=== PATIENT | male | born 1965 | race Caucasian/White ===

== ENCOUNTER → 2020-09-25 07:37 | Outpatient (CLI) | payer OTHER, SELFPAY ==
--- NOTE | ~2020-09-25 | MR_ITS ---
EXAMINATION: MR lumbar spine wo con DATE: 09/25/2020 08:14 INDICATION: Acute right-sided low back pain with right-sided sciatica. TECHNIQUE: Magnetic resonance imaging (MRI) of the lumbar spine was performed without intravenous con trast. Sequences included sagittal T2-weighted FSE, sagittal T2-weighted FS FSE, sagittal T1-weighted FSE, and axial T2-weighted FSE. COMPARISON: None FINDINGS: There is 5 degrees levocurvature of lumbar spine. There is 3 mm retrolisthesis of L2 on L3, L3 on L4, and L4-L5. There is mildly decreased disc height at L2-L3 and L3-L4, moderately decreased disc height at L4-L5, and mildly decreased disc at L5-S1 with endplate remodeling. The distal spinal cord signal intensity is normal. The conus medullaris is at L1. The following disc levels are specifi richard discussed: L1-L2: The disc does not extend beyond the endplate margin. There is no facet joint osteoarthritis. T here is no neural foraminal stenosis. There is no central canal stenosis. L2-L3: The disc is bulging and has an annular fissure. There is mild bilateral facet joint osteoarthr itis. There is mild bilateral neural foraminal stenosis. There is mild central canal stenosis. L3-L4: The disc is bulging and has an annular fissure. There is mild bilateral facet joint osteoarthr itis. There is mild bilateral neural foraminal stenosis. There is mild central canal stenosis. L4-L5: The disc is bulging and has an annular fissure. There is moderate bilateral facet joint osteoa rthritis. There is moderate bilateral neural foraminal stenosis. There is mild central canal stenosis . L5-S1: The disc is bulging and has an annular fissure. There is severe bilateral facet joint osteoart hritis. There is mild right and moderate left neural foraminal stenosis. There is mild central canal stenosis. IMPRESSION: 1. Moderate lumbar spondylosis. Reviewed, dictated and finalized at location A. TER MAINTAINER
== END ==
PROVIDERS: PCP Student in an Organized Health Care Education/Training Program; Visit Provider Student in an Organized Health Care Education/Training Program
DX: M48.07 Spinal stenosis, lumbosacral region (principal); M47.817 Spondylosis without myelopathy or radiculopathy, lumbosacral region
CPT/HCPCS: 72148

== ENCOUNTER 2023-03-16 01:51 | Day surgery (SDC) | payer OTHER, SELFPAY ==
[2023-03-06 15:16] VITALS: BMI 23.4
--- NOTE | 2023-03-14 15:29 | P.HP_ITS ---
History of Present Illness History of Present Illness Consent: Risks, benefits, and alternatives have been discussed and questions answered. Patient agrees to proceed with procedure. Chief complaint: other diseases of digestive system,hx colon polyps Narrative: Ferdinand Yeung is a 58 year old male referred for colon cancer screening. About 5 years ago he had removal of polyps 1 of which contained high-grade dysplasia. He also suffers from chronic acid reflux which he takes a PPI several times a week. Review of Systems Review of Systems: All systems reviewed & are unremarkable except as noted in HPI and below PMFSH Surgical History Surgical History History of hernia surgery right inguinal - 2016 History of shoulder surgery left shoulder - 1982 History of spinal surgery 01/2020 Family History Family History Mother Hypertension Family history of mental disorder Patient's mother is in good health Family history of elevated blood lipids Father Family history of diabetes mellitus in first degree relative Diabetes mellitus Hypertension Patient's father is in good health Family history of coronary artery disease Social History Social History Smoking status: Never smoker Alcohol intake: current Alcohol use details: ON OCCASION Substance use: never Substance use type: does not use Living arrangements: with family Spiritual care concerns: No Meds Home Medications and Allergies Home Medications Medication Instructions Recorded Confirmed Type lisinopril 10 mg tablet 10 mg PO DAILY 08/16/20 03/06/23 History rosuvastatin [Crestor] 20 mg PO DAILY 08/16/20 03/06/23 History [place] 3 1 tab-cap PO DAILY 03/06/23 03/06/23 History bupropion HCl 150 mg 24 hr tablet, 150 mg PO DAILY 03/06/23 03/06/23 History extended release magnesium oxide 1 tab-cap PO DAILY 03/06/23 03/06/23 History multivitamin 1 tab-cap PO DAILY 03/06/23 03/06/23 History Allergies Allergy/AdvReac Type Severity Reaction Status Date / Time No Known Allergies Allergy Verified 03/16/23 08:13 Exam Const: General: alert Orientation/consciousness: patient oriented x3 Resp: Auscultation: clear to auscultation bilaterally Cardio: Rhythm: regular rhythm GI: GI Palp: Yes Soft to palpation and No Tenderness to palpation present (GI) Neuro: General: patient oriented x3 Assessment and Plan Assessment and plan (1) Colon cancer screening: Code(s): Z12.11 - Encounter for screening for malignant neoplasm of colon Status: Acute (2) GERD (gastroesophageal reflux disease): Code(s): K21.9 - Gastro-esophageal reflux disease without esophagitis Status: Acute Assessment and Plan: EGD with possible biopsy or dilatation or cautery.
[2023-03-16 08:14] VITALS: BP 120/78; PULSE 69; RESP 20; TEMP 36.3; O2SAT 100
[2023-03-16] MEDS: LACTATED RINGERS 1,000 ML 150 ML IV CONT (08:25)
--- NOTE | 2023-03-16 08:50 | WPDANESEPPF ---
Anes - Initial Pre Proc Eval Procedure: Operation Date: 03/16/23 09:30 Proposed Procedures p Esophagogastroduodenoscopy & Colonoscopy - Neri Winters MD Date/Time: 03/16/23 08:50 Surgeon: Neri Winters MD Pre Op Diagnosis: other diseases of digestive system,hx colon polyps Patient Data Age: 58 Gender: M Height: 1.73 m Weight: 68.8 kg Last Vital Signs Temp 97.3 F L 03/16/23 08:14 Pulse 69 03/16/23 08:14 Resp 20 03/16/23 08:14 BP 120/78 03/16/23 08:14 Pulse Ox 100 03/16/23 08:14 O2 Del Method Room Air 03/16/23 08:14 Allergies Allergy/AdvReac Type Severity Reaction Status Date / Time No Known Allergies Allergy Verified 03/16/23 08:13 Home Medications Medication Instructions Recorded Confirmed Type lisinopril 10 mg tablet 10 mg PO DAILY 08/16/20 03/06/23 History rosuvastatin [Crestor] 20 mg PO DAILY 08/16/20 03/06/23 History [place] 3 1 tab-cap PO DAILY 03/06/23 03/06/23 History bupropion HCl 150 mg 24 hr tablet, 150 mg PO DAILY 03/06/23 03/06/23 History extended release magnesium oxide 1 tab-cap PO DAILY 03/06/23 03/06/23 History multivitamin 1 tab-cap PO DAILY 03/06/23 03/06/23 History Patient hx anesthesia problems: none Family hx anesthesia problems: none Results Review: All pre-operative results and documents have been reviewed as part of the pre-operative evaluation. FOR[facility], [facility] Surgical History Surgical History (Updated 08/16/20 @ 16:23 by Hodan Allan RN) History of hernia surgery right inguinal - 2016 History of shoulder surgery left shoulder - 1982 History of spinal surgery 01/2020 Family History Family History (Updated 02/28/17 @ 07:30 by DOCTOR UNKNOWN) Mother Hypertension Family history of mental disorder Patient's mother is in good health Family history of elevated blood lipids Father Family history of diabetes mellitus in first degree relative Diabetes mellitus Hypertension Patient's father is in good health Family history of coronary artery disease Social History Social History (Updated 08/16/20 @ 16:23 by Hodan Allan RN) Smoking status: Never smoker Alcohol intake: current Alcohol use details: ON OCCASION Substance use: never Substance use type: does not use Living arrangements: with family Spiritual care concerns: No Anes - Eval Final PreProcedure Day of Procedure 03/16/23 08:50 Patient weight: normal Heart: regular rate and rhythm Lungs: clear to auscultation Airway: Mallampati scale class II Neurological: alert and oriented Last oral intake: >/= 8 hours ASA classification: II Emergent: no Anesthetic plan: proceed Anesthesia type and monitoring: general GIVS and standard monitoring Results Review: All pre-operative results and documents have been reviewed as part of the pre-operative evaluation. Informed Consent: The patient's anesthetic plan and its attendant risks and benefits were discussed with the patient/family/POA. Questions were solicited and answers provided to the satisfaction of the patient/family/POA.
--- NOTE | 2023-03-16 09:36 | SUR.OPER ---
EGD ended 929 colonoscopy started 935
[2023-03-16 09:48] VITALS: BP 103/69; PULSE 78; RESP 20; O2SAT 98
[2023-03-16 09:58] VITALS: BP 106/74; PULSE 84; RESP 19; O2SAT 98
[2023-03-16 10:08] VITALS: BP 110/73; PULSE 74; RESP 20; O2SAT 94
== END 2023-03-16 10:17 | disposition home or self-care (01) ==
PROVIDERS: PCP Physician Assistant; Visit Provider Internal Medicine Gastroenterology
PROC: 0DJ08ZZ Inspection of Upper Intestinal Tract, Via Natural or Artificial Opening Endoscopic (ICD-10-PCS; CPT 43235; principal; 2023-03-16 09:30)
DX: Z12.11 Encounter for screening for malignant neoplasm of colon (principal); K57.30 Diverticulosis of large intestine without perforation or abscess without bleeding; K21.00 Gastro-esophageal reflux disease with esophagitis, without bleeding; K44.9 Diaphragmatic hernia without obstruction or gangrene; K64.8 Other hemorrhoids
CPT/HCPCS: 45378; 43239; 87081; 88305; J2001; J2704; J7120

== ENCOUNTER → 2023-09-06 15:16 | Outpatient (CLI) | payer OTHER, SELFPAY ==
--- NOTE | ~2023-09-06 | MR_ITS ---
EXAMINATION: MR lumbar spine wo con DATE: 09/06/2023 15:58 INDICATION: Low back pain. Right leg numbness and tingling. TECHNIQUE: Magnetic resonance imaging (MRI) of the lumbar spine was performed without intravenous con trast. Sequences included sagittal T2-weighted FSE, sagittal T2-weighted FS FSE, sagittal T1-weighted FSE, and axial T2-weighted FSE. COMPARISON: Lumbar spine MRI 09/25/2020 FINDINGS: There is 6 degrees levocurvature of lumbar spine. There is mild chronic anterior wedging of L2 vertebral body. There is moderately decreased disc height at L2-L3 and L3-L4, severely decreased disc height at L4-L5, and moderately decreased disc height at L5-S1. The distal spinal cord signal in tensity is normal. The conus medullaris is at L1. The following disc levels are specifically discusse d: L1-L2: The disc does not extend beyond the endplate margin. There is mild bilateral facet joint osteo arthritis. There is no neural foraminal stenosis. There is no central canal stenosis. L2-L3: The disc is bulging. There is mild right and moderate left facet joint osteoarthritis. There i s mild bilateral neural foraminal stenosis. There is mild central canal stenosis. L3-L4: The disc is bulging. There is mild bilateral facet joint osteoarthritis. There is mild bilater al neural foraminal stenosis. There is mild central canal stenosis. L4-L5: The disc is bulging and has an annular fissure. There is moderate bilateral facet joint osteoa rthritis. There is moderate bilateral neural foraminal stenosis. There is mild central canal stenosis . L5-S1: This is bulging and has an annular fissure. There is severe bilateral facet joint osteoarthrit is. There is mild right and moderate left neural foraminal stenosis. There is mild central canal sten osis. IMPRESSION: 1. Severe lumbar spondylosis, mildly worsened from 09/25/2020. Reviewed, dictated and finalized at location E. ORMANCE INSTRUCTOR
== END ==
PROVIDERS: PCP Physician Assistant
DX: R29.898 Other symptoms and signs involving the musculoskeletal system (principal); M43.06 Spondylolysis, lumbar region
CPT/HCPCS: 72148

== ENCOUNTER 2025-03-27 09:12 | Outpatient (CLI) | payer OTHER, SELFPAY ==
--- NOTE | ~2025-03-27 | MR_ITS ---
MRI of the lumbar spine Clinical History: Radiculopathy Technique: Axial T2-weighted images, and sagittal T1-weighted, T2-weighted, and T2 fat-sat images wer e acquired. COMPARISON: 09/06/2023 Findings: No acute fracture or subluxation identified. Osseous alignment is unchanged. No suspicious bone marrow signal abnormality seen. At L1-L2, there is no disc bulge or herniation. No spinal canal stenosis or neural foraminal narrowin g. At L2-L3, there is moderate degenerative disc narrowing. There is minimal disc bulge. No spinal canal stenosis or left neural foraminal narrowing. There is mild right neural foraminal narrowing. At L3-L4, there is moderate degenerative disc narrowing. There is mild disc bulge. No spinal canal st enosis. There is moderate right neural foraminal narrowing and mild left neural foraminal narrowing. At L4-L5, there is advanced degenerative disc narrowing. There is mild disc bulge and mild facet arth ropathy. No central canal stenosis. There is severe bilateral neural foraminal narrowing. At L5-S1, there is moderate to advanced degenerative disc narrowing. There is disc bulge with advance d facet arthropathy. No spinal canal stenosis. There is moderate to advanced neural foraminal narrowi ng, and moderate right neural foraminal narrowing. Paravertebral soft tissues are unremarkable. Impression: Moderate degenerative spondylosis overall, with multilevel neural foraminal narrowing and degenerativ e disc change, as detailed above. Reviewed, dictated and finalized at [facility]. Impression: Moderate degenerative spondylosis overall, with multilevel neural foraminal ary rowing and degenerative disc change, as detailed above.
== END 2025-03-27 09:13 | disposition home or self-care (01) ==
PROVIDERS: PCP Anesthesiology Pain Medicine; Visit Provider Anesthesiology Pain Medicine
DX: M47.896 Other spondylosis, lumbar region (principal); G89.29 Other chronic pain; M48.061 Spinal stenosis, lumbar region without neurogenic claudication; M51.370 Other intervertebral disc degeneration, lumbosacral region with discogenic back pain only
CPT/HCPCS: 72148

== ENCOUNTER 2025-07-03 13:50 | Outpatient (CLI) | payer OTHER, SELFPAY ==
--- NOTE | ~2025-07-03 | XR_ITS ---
XR hip LT min 2V 07/03/2025 14:26 Indication: Hip pain Procedure: 2 views left hip Comparison: 10/26/2018 Findings: There is chondrocalcinosis. Mild osteoarthritis of the left hip. No fracture, subluxation or dislocation. Impression: 1: Mild osteoarthritis of the left hip. 2: Chondrocalcinosis. Reviewed, dictated and finalized at location O. Impression: 1: Mild osteoarthritis of the left hip. 2: Chondrocalcinosis.
--- NOTE | ~2025-07-03 | XR_ITS ---
EXAM/ PROCEDURE: XR hip RT min 2V - 07/03/2025 14:15 CDT HISTORY: 60 years old Male with bilateral hip pain COMPARISON: None available TECHNIQUE: Two view(s) FINDINGS/ IMPRESSION: There are no fractures or dislocations.Joint space narrowing, subchondral sclerosis, subchondral cyst formation and osteophyte formation, compatible with mild osteoarthritis. Chondrocalcinosis. Reviewed, dictated and finalized at location N.
--- OUTSIDE RECORDS SUMMARY | 2025-07-03 14:08 | XMS_ITS | Clinical Summary ---
Author Organization [facility] Address [address] [place] [id number] Care Team Providers Care Parking Lot Attendant Name Role Phone Lissa Moore Primary Care Pr ovider Allergies No known active allergies Medications ipratropium-alb uteroL (DUO-NEB) 0.5-2.5 mg/3 mL nebulizer solutionIndicat ions:Chronic Obstructive Pulmonary Disease with Bronchospasms,r espiratory infection Take 3 mL by nebulization every 4 (four) hours as needed for wheezing or shortness of breath 180 mL 11 2 Active metFORMIN XR (GLUCOPHAGE XR) 500 mg 24 hr tablet TAKE 1 TABLET BY MOUTH TWICE A DAY 180 tablet 3 3 Active lisinopriL (PRINIVIL,ZESTR IL) 10 mg tablet TAKE 1 TABLET BY MOUTH DAILY 90 tablet 1 4 Active econazole 1 % cream APPLY TO THE AFFECTED AND SURROUNDING AREAS OF SKIN TWICE A DAY FOR 6 WEEKS Active pimecrolimus (ELIDEL) 1 % cream PLEASE SEE ATTACHED FOR DETAILED DIRECTIONS 4 Active clobetasoL (TEMOVATE) 0.05 % cream APPLY A THIN LAYER TO THE AFFECTED AREA(S) BY TOPICAL ROUTE 2 TIMES PER DAY NEVER TO FACE 4 Active cholecalciferol (VITAMIN D-3) 2000 unit tablet Take 4 tablets (8,000 Units total) by mouth daily Active buPROPion XL (WELLBUTRIN XL) 150 mg 24 hr tablet TAKE 1 TABLET BY MOUTH EVERY DAY 90 tablet 1 5 Active Active Problems Problem Noted Date Diagnosed Date 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 radicular lumbar pain 08/08/2023 Right leg weakness 08/08/2023 Cervicalgia 01/08/2020 Cervical radiculopathy 01/08/2020 Cervical spinal stenosis 01/08/2020 Spondylosis of cervical joint without myelopathy 01/08/2020 Social History Tobacco Use Types Packs/Day Years Used Date Smoking Tobacco: Never Assessed Sex and Gender Information Value Date Recorded Sex Assigned at Not on file Legal Sex Male 8:01 AM CDT Gender Identity Not on file Sexual Orientation Not on file Obstetrics History Last Filed Vital Signs Vital Sign Reading Time Taken Comments Blood Pressure 117/80 01/28/2020 7:56 AM CDT Pulse 75 01/28/2020 7:56 AM CDT Temperature 36.7 C (98 F) 01/28/2020 7:50 AM CDT Respiratory Rate 18 01/28/2020 7:56 AM CDT Oxygen Saturation 98% 01/28/2020 7:56 AM CDT Inhaled Oxygen Concentration - - Weight - - Height - - Body Mass Index - - Plan of Treatment Health Maintenance Due Date Last Done Comments Colon Cancer Screening-Colonoscopy 1965 Depression Screening 1965 Hepatitis C Screening 1965 Prostate Cancer Screening-PSA 1965 Regular Well Visit/Exam 18-64 1983 Influenza Vaccine (#1) 2025 07/29/2019 DTaP/Tdap/Td Vaccine (2 - Td or Tdap) 09/03/2030 09/03/2020 Hepatitis B Screening Completed 11/24/2009 , 05/21/2009, 04/20/2009 Zoster Vaccine Completed 05/06/2019, 01/20/2019 Pneumococcal vaccine <65 Aged Out No longer eligible based on patient's age to complete this topic Insurance [employer] [facility] HMO Care Teams Parking Lot Attendant Relationship Specialty Start Date End Date Lissa Moore PA [address] [place] [address] PCP - General Physician Grocery Team Member 06/02/24
--- OUTSIDE RECORDS SUMMARY | 2025-07-03 14:08 | XMS_ITS | Clinical Summary ---
Author Organization [facility] Address [address] [place] [id number] Care Team Providers Care Workers' Compensation Magistrate Name Role Phone DomobernardvonandersRa Magdi FARLEY Primary Care Provider + Allergies No known active allergies Medications Multiple Vitamins-Minerals (MULTIVITAMIN ADULT OR) Take 1 tablet by mouth daily. Active fish oil (OMEGA-3 FATTY ACID) 1000 MG Cap capsule Take 1,800 mg by mouth daily. Active acetaminophen 500 MG tablet Take 500 mg by mouth every 6 (six) hours as needed. Active Cholecalciferol (VITAMIN D-3 SUPER STRENGTH) 50 MCG (2000 UT) Tab Take 8,000 Units by mouth daily. Active Coenzyme Q10 (CO Q 10) 10 MG Cap Take 10 mg by mouth 2 (two) times daily. Active magnesium 250 MG tablet Take 1 tablet by mouth daily. Active buPROPion XL 150 MG 24 hr tabletIndications:D epression with anxiety Take 1 tablet (150 mg total) by mouth every morning. 90 tablet 3 0 Active lisinopril 10 MG tabletIndications:E ssential hypertension Take 1 tablet (10 mg total) by mouth daily. 90 tablet 3 0 Active rosuvastatin 40 MG tabletIndications:H yperlipidemia, unspecified hyperlipidemia type Take 1 tablet (40 mg total) by mouth daily. 90 tablet 3 0 Active LORazepam 0.5 MG tabletIndications:D epression with anxiety Take 1 tablet (0.5 mg total) by mouth daily as needed for Anxiety. 30 tablet 0 Active Active Problems Problem Noted Date Diagnosed Date BMI 25.0-25.9,adult 09/03/2020 Fatigue, unspecified type 09/03/2020 Hyperlipidemia, unspecified hyperlipidemia type 09/03/2020 Essential hypertension 09/03/2020 Depression with anxiety 09/03/2020 Cervical spinal stenosis 01/08/2020 Cervicalgia 01/08/2020 Spondylosis of cervical joint without myelopathy 01/08/2020 Inguinal hernia, right 07/25/2017 Umbilical hernia without obstruction and without gangrene 07/25/2017 Immunizations Immunization Administration Dates Next Due Hepatitis B (Generic: Adult) 11/24/2009,05/21/20,04/20/2009 Influenza (Generic) 07/29/2019 Shingrix 05/06/2019,01/20/2019 Tdap (Historical Only-select from magnify glass) 09/03/2020 Family History Medical History Relation Comments Diabetes Father Heart Disease Father Hypertension Father Hyperlipidemia Mother Hypertension Mother Thyroid Mother No Known Problems Sister Relation Status Comments Father Alive Mother Alive Sister Social History Tobacco Use Types Packs/Day Years Used Date Smoking Tobacco: Never Smokeless Tobacco: Never Alcohol Use Standard Drinks/Week Comments Yes 1.7 (1 standard drink = 0.6 oz p ure alcohol) AUDIT-C Answer Date Recorded Q1: How often do you have a drink containing alc ohol? 2-3 times a week 09/03/2020 Q2: How many drinks containi ng alcohol do you have on a typical day when you are drinking? 1 or 2 09/03/2020 Q3: How often do you have si x or more drinks on one occasion? 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 on file Not on file Not on file Last Filed Vital Signs Vital Sign Reading Time Taken Comments Blood Pressure 106/64 09/03/2020 7:14 AM SPORTS INSTRUCTOR Pulse 70 09/03/2020 7:14 AM SPORTS INSTRUCTOR Temperature 36.9 C (98.4 F) 09/03/2020 7:14 AM SPORTS INSTRUCTOR Respiratory Rate 16 09/03/2020 7:14 AM SPORTS INSTRUCTOR Oxygen Saturation 98% 09/03/2020 7:14 AM SPORTS INSTRUCTOR Inhaled Oxygen Concentration - - Weight 75.2 kg (165 lb 12.8 oz) 09/03/2020 7:14 AM SPORTS INSTRUCTOR Height 172.7 cm (5' 8) 09/03/2020 7:14 AM SPORTS INSTRUCTOR Body Mass Index 25.21 09/03/2020 7:14 AM SPORTS INSTRUCTOR Plan of Treatment Health Maintenance Due Date Last Done Comments Colorectal Cancer Screening Colonoscopy (10 Years) 1965 Annual Physical 02/20/1968 Hepatitis C 1983 Pneumococcal Vaccine: 50+ Years (1 of 1 - PCV) 2015 COVID-19 Vaccine ( - 2023-2 5 season) 2024 DTaP, Tdap and Td Vaccines ( 2 - Td or Tdap) 09/03/2030 09/03/2020 RSV Immunization or 60+ Years (1 - 1-dose 75+ series) 02/20/2040 Zoster Vaccines Completed 05/06/2019, 01/20/2019 Meningococcal B Vaccine Aged Out No l onger eligible based on patient's age to complete this topic Meningococcal Vaccine Aged Out No maryanne jessica eligible based on patient's age to complete this topic RSV Immunizations Under 20 Months Aged Out No longer eligible b ased on patient's age to complete this topic Insurance [employer] Care Teams Workers' Compensation Magistrate Relationship Specialty Start Date End Date Ra Petit DO [address] [place] [id number] PCP - General FAMILY PRACTICE 09/03/20
--- OUTSIDE RECORDS SUMMARY | 2025-07-03 14:08 | XMS_ITS | Clinical Summary ---
Author Organization [facility] Address [address], [facility] [address] [place] [address] Phone Care Team Providers Care Truck Jumper Name Role Phone Jesse Brooke MD Unavailable [phone] David Carrillo MD Primary Care Provider [phone] Allergies No known active allergies Medications lisinopril (PRINIVIL, ZESTRIL) 10 MG Tablet Take 10 mg by mouth daily. Active buPROPion (WELLBUTRIN) 150 MG XL tablet Take 150 mg by mouth every morning. Active [place]-3 Fatty Acids (FISH OIL PO) Take 1,800 mg by mouth daily. Active Aspirin 81 MG Tablet Take 81 mg by mouth daily. Active Magnesium 250 MG Tablet Take 1 Tab by mouth daily. Active Multiple Vitamin (MULTIVITAMINS PO) Take 1 Tab by mouth daily. Active Active Problems Problem Noted Date Diagnosed Date Inguinal hernia, right 07/25/2017 Umbilical hernia without obstruction and without gangrene 07/25/2017 Family History Medical History Relation Name Comments Diabetes Father Heart Attack Father Hypertension Father Heart Disease Maternal Grandmother Hypertension Mother Relation Name Status Comments Father Alive Maternal Grandmother Mother Alive Social History Tobacco Use Types Packs/Day Years Used Date Smoking Tobacco: Never Smokeless Tobacco: Never Tobacco Cessation:Counseling Given: No Alcohol Use Standard Drinks/Week Comments Yes 0 (1 standard drink = 0.6 oz pur e alcohol) Rare Sex and Gender Information Value Date Recorded Sex Assigned at Not on file Legal Sex Male 8:48 PM CDT Gender Identity Not on file Sexual Orientation Not on file Last Filed Vital Signs Vital Sign Reading Time Taken Comments Blood Pressure 112/84 09/05/2017 3:25 PM AUTOMOBILE SEAT COVER INSTALLER Pulse 70 09/05/2017 3:25 PM AUTOMOBILE SEAT COVER INSTALLER Temperature 36.1 C (97 F) 09/05/2017 3:25 PM AUTOMOBILE SEAT COVER INSTALLER Respiratory Rate 17 09/05/2017 3:25 PM AUTOMOBILE SEAT COVER INSTALLER Oxygen Saturation 99% 09/05/2017 3:25 PM AUTOMOBILE SEAT COVER INSTALLER Inhaled Oxygen Concentration - - Weight 75.3 kg (166 lb) 09/05/2017 3:25 PM AUTOMOBILE SEAT COVER INSTALLER Height 172.7 cm (5' 8) 09/05/2017 3:25 PM AUTOMOBILE SEAT COVER INSTALLER Body Mass Index 25.24 09/05/2017 3:25 PM AUTOMOBILE SEAT COVER INSTALLER Plan of Treatment Health Maintenance Due Date Last Done Comments Hepatitis C Virus (HCV) Screening 1965 TdaP Immunization 1965 Cologuard 2010 Colonoscopy 2010 Colorectal Cancer Screening 2010 Immunochemical Fecal Occult Blood 2010 Pneumococcal Immunization (5 0+ years) (1 of 1 - PCV) 2015 Zoster Immunization (1 of 2) 2015 Influenza Immunization (#1) 2025 SARS-COV-2 Immunization ( - 2023- season) 2025 Respiratory Syncytial Virus (RSV) Immunization (Adult) (1 - 1-dose 75+ series) 02/20/2040 Hepatitis B Immunization Aged Out No longer eligible based on patient's age to complete this topic Human Papillomavirus (HPV) Immunization Aged Out No longer eligible b ased on patient's age to complete this topic Meningococcal Immunization (ACWY) Aged Out No longer eligible based on patient's age to complete this topic Rotavirus Immunization Aged Out No lo nger eligible based on patient's age to complete this topic Medical Devices Implanted Type Area Plastic Sewer Device Identifier Shelf Expiration Date Model / Serial / Lot Mesh Bard 3d Max Lg 4x6in R - [id number] Implanted:Qty : 1 on 08/23/2017 by Jesse Brooke MD at [facility] IMPLANT Right: Inguinal CR BARD / DAVOL 02/23/2021 [id number] / [id number] / [id number] Care Teams Truck Jumper Relationship Specialty Start Date End Date David Carrillo MD PCP - General Internal Medicine 07/25/17 Jesse Brooke MD General Surgery 07/16/17
--- OUTSIDE RECORDS SUMMARY | 2025-07-03 14:08 | XMS_ITS | Clinical Summary ---
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 Active rosuvastatin (CRESTOR) 40 mg tablet Take 40 mg by mouth daily. Active buPROPion HCL (WELLBUTRIN XL) 150 mg Extended Release 24 hour tablet Take 150 mg by mouth daily environmental epidemiologist. Active acetaminophen (TYLENOL) 500 mg tablet Take 500 mg by mouth every 6 hours as needed. Active multivitamin (DAILY-MIKKI) tablet Take 1 Tablet by mouth daily. Active Fish Oil-[place]-3 Fatty Acids 435-880 mg Capsule Take 800 mg by mouth daily. Active Magnesium Oxide 84.5 mg mag (140 mg) Capsule Take 90 mg by mouth daily. Active cholecalciferol, Vitamin D3, 50 mcg (2,000 unit) Tablet Take 4,000 Units by mouth. Active coenzyme Q10 Capsule Take 10 mg by mouth 2 times daily. Active Active Problems Problem Noted Date Diagnosed Date Cervical radiculopathy 2020 Immunizations Immunization Administration Dates Next Due Influenza Seasonal Unspecified Formulation IM Family History Medical History Relation Name Comments Diabetes Father Heart Disease Father High Cholesterol Father Hypertension Maternal Grandfather Heart Disease Maternal Grandmother Hypertension Maternal Grandmother High Cholesterol Mother Hypertension Mother No Known Problems Paternal Grandfather No Known Problems Paternal Grandmother Healthy Sister Relation Name Status Comments Father Maternal Grandfather Maternal Grandmother Mother Paternal Grandfather Paternal Grandmother Sister Social History Tobacco Use Types Packs/Day Years Used Date Smoking Tobacco: Never Alcohol Use Standard Drinks/Week Comments Yes 0 (1 standard drink = 0.6 oz pur e alcohol) Sex and Gender Information Value Date Recorded Sex Assigned at Not on file Legal Sex Male 5:24 PM CDT Gender Identity Not on file Sexual Orientation Not on file Last Filed Vital Signs Vital Sign Reading Time Taken Comments Blood Pressure 106/74 2020 12:03 PM CDT Pulse 79 2020 12:03 PM CDT Temperature 36.1 C (97 F) 2020 12:03 PM CDT Respiratory Rate 18 2020 12:03 PM CDT Oxygen Saturation 93% 2020 12:03 PM CDT Inhaled Oxygen Concentration - - Weight 75.8 kg (167 lb) 2020 5:56 AM CDT Height 172.7 cm (5' 8) 02/13/2020 9:40 AM CDT Body Mass Index 25.39 02/13/2020 9:40 AM CDT Plan of Treatment Health Maintenance Due Date Last Done Comments DTAP/TDAP/TD VACCINES (1 - Tdap) 02/20/1984 COLORECTAL SCREENING 2010 Colorectal Cancer Screening 2010 FIT-DNA Q 3 years 2010 FIT/FOBT Q 1 year 2010 Flex Sig/CT Colonography Q 5 years 2010 ZOSTER VACCINE (1 of 2) 2015 INFLUENZA VACCINE (#1) 2025 07/29/2019 RSV VACCINE (60+ or ) (1 - 1-dose 75+ series) 02/20/2040 HEPATITIS B VACCINES Aged Out No long er eligible based on patient's age to complete this topic Medical Devices Implanted Type Area Dispatch Officer Device Identifier Shelf Expiration Date Model / Serial / Lot Hemostatic Surgiflo 8ml W/Thrombin 2994 - [id number] Implanted:Qty : 1 on 2020 by Clifton Crowe MD at [facility] Hemostatic N/A: Spine Cervical Posterior [employer] [id number] 12/26/2020 2994 / / [id number] Insurance [employer] CHOICE POS II RX [facility] [employer] Advance Directives For more information, please contact: [phone] * Full Code (Latest Code Status on File) Date Activated Date Inactivated Comments 2020 7:28 AM 2020 4:16 PM * Full Code Date Activated Date Inactivated Comments 2020 5:53 AM 2020 7:28 AM
== END 2025-07-03 13:51 | disposition home or self-care (01) ==
PROVIDERS: PCP Physician Assistant; Visit Provider Physician Assistant
DX: M25.551 Pain in right hip (principal); M25.552 Pain in left hip
CPT/HCPCS: 73502